=== PATIENT | female | born 1945 ===

== ENCOUNTER → 2023-04-18 06:00 | Outpatient (CLI) | payer OTHER ==
[~2023-04-18] VITALS: Ht 157.5 cm; Wt 63.5 kg
[~2023-04-18 06:00] MED LIST: D3 + K2 DOTS 11 EACH PO; LIPITOR20 MG PO; METFORMIN HCL500 M3 PO; NORVASC2.5 M1 PO
== END | disposition home or self-care (01) ==
LOC: LAB 06:00 → EDSTATUS 04-21 08:45 → SURG 04-21 08:45
PROVIDERS: ATTEND Surgery
DX: Z03.818 Encounter for observation for suspected exposure to other biological agents ruled out (principal); Z20.822 Contact with and (suspected) exposure to COVID-19